=== PATIENT | female | born 1995 | race Caucasian/White ===

== ENCOUNTER 2016-12-19 17:50 | Emergency (ER) ==
[2016-12-19 17:57] VITALS: BP 114/85; TEMP 98.5; BMI 23.9
--- NOTE | 2016-12-19 18:51 | ED.PDOC ---
General Stated Complaint: abdominal pain Time Seen by Physician: 18:20 (home was postive ) Mode of Arrival: Walk-In Information Source: Patient Exam Limitations: No limitations Nursing and Triage Documentation Reviewed and Agree: Yes (seen with silas at all times , pt's last LMP WAS 11/11) <HEBERT PENNINGTON - Last Filed: 12/19/16 19:04> <LORENZA PORRAS - Last Filed: 12/19/16 19:22> ED Provider: Dr. LORENZA PORRAS Chief Complaint: Abdominal Pain Primary Care Provider: BLAYNE JAMISON GI Complaint Exam - Abdominal Pain Complaint/Exam Onset: Gradual Duration: 1 DAY Symptoms Are: Still present Timing: Intermittent Initial Severity: Mild Current Severity: None Location of Pain: RLQ, LLQ Character: Reports: Aching Aggravating: Reports: None Alleviating: Reports: None Associated Signs and Symptoms: Denies: Diaphoresis, Fever, Cough, Chest pain, Dizziness, Back pain, Constipation, Blood in stool, Dysuria, Urinary frequency, Decreased urine output, Decreased appetite, Vaginal bleeding, Vaginal discharge , Nausea, Vomiting, Diarrhea, Sore throat, Decreased activity AAA Risk Factors: Reports: None Cardiac Risk Factors: Reports: DM Ectopic Risk Factors: Reports: None Ovarian Torsion Risk Factors: Reports: Reproductive age Surgical Obstruction Risk Factors: Reports: None Related Surgical History: Reports: None Patient Rh Status: Unknown Differential Diagnoses: Appendicitis, Bowel Obstruction, Constipation, Diverticulitis, Gastroenteritis, Pancreatitis, Renal Colic, Ureteral Stone, UTI , , Ovarian Cyst <HEBERT PENNINGTON - Last Filed: 12/19/16 19:04> Review of Systems - Review Of Systems Constitutional: Reports: No symptoms Eyes: Reports: No symptoms Ears, Nose, Mouth, Throat: Reports: No symptoms Respiratory: Reports: No symptoms Cardiac: Reports: No symptoms GI: Reports: Abdominal pain (no vaginal bleeding or discharge no contractions) : Reports: No symptoms Musculoskeletal: Reports: No symptoms Skin: Reports: No symptoms Neurological: Reports: No symptoms Endocrine: Reports: No symptoms Hematologic/Lymphatic: Reports: No symptoms All Other Systems: Reviewed and Negative <HEBERT PENNINGTON - Last Filed: 12/19/16 19:04> Past Medical History - Past Medical History Previously Healthy: No Endocrine: Reports: DM 1 Cardiovascular: Reports: None Respiratory: Reports: None Hematological: Reports: None Gastrointestinal: Reports: None Genitourinary: Reports: None Neuro/Psych: Reports: None Musculoskeletal: Reports: None Cancer: Reports: None Last Menstrual Period: 11/11 Other Pertinent Past Medical History: - Surgical History General Surgical History: Reports: Appendectomy, Cholecystectomy, Tonsillectomy , Other (Liver biopsy. ) - Family History Family History: Reports: None - Social History Smoking Status: Never smoker Hx Substance Use: No Alcohol Screening: None - Immunizations Tetanus Shot up to Date: Yes <ADITIHEBERT - Last Filed: 12/19/16 19:04> Physical Exam - Physical Exam Appearance: Well-appearing, No pain distress, Well-nourished Eyes: JACKIE, EOMI, Conjunctiva clear ENT: Ears normal, Nose normal, Oropharynx normal Respiratory: Airway patent, Breath sounds clear, Breath sounds equal, Respirations nonlabored Cardiovascular: RRR, Pulses normal, No rub, No murmur GI/: Soft, Nontender, No masses, Bowel sounds normal, No Organomegaly Musculoskeletal: Normal strength, ROM intact, No edema, No calf tenderness Skin: Warm, Dry, Normal color Neurological: Sensation intact, Motor intact, Reflexes intact, Cranial nerves intact, Alert, Oriented Psychiatric: Affect appropriate, Mood appropriate <HEBERT PENNINGTON - Last Filed: 12/19/16 19:04> Physician Notification - Case Discussed Physician Notified: VERN Time of Notification: 19:00 <ADITIHEBERT - Last Filed: 12/19/16 19:04> Critical Care Note - Critical Care Note Total Time (mins): 0 <HEBERT PENNINGTON - Last Filed: 12/19/16 19:04> Departure - Departure Pt referred to PMD for follow-up: No <HEBERT PENNINGTON - Last Filed: 12/19/16 19:04> - Departure Time of Disposition: 19:22 Disposition Discussed With: Patient <LORENZA PORRAS - Last Filed: 12/19/16 19:22> - Departure Disposition: HOME SELF-CARE Discharge Problem: Abdominal pain Qualifiers: Weeks of gestation: less than 8 weeks Qualifier Code: (Z3A.01) Less than 8 weeks gestation of Instructions: Abdominal Pain (ED) Condition: Good Additional Instructions: please start pre carrie vitamins keep checking sugars more frequently, if more than 200 needs to talk to PMD or come back to ER. Allergies/Adverse Reactions: Allergies adhesive Adverse Reaction (Verified 12/19/16 18:04) aspirin Adverse Reaction (Verified 12/19/16 18:04) Home Medications: Ambulatory Orders Insulin Glargine,Hum.rec.anlog [Lantus] 45 unit SUBCUT BEDTIME 04/08/14 Insulin Lispro [Humalog Kwikpen U-100] 1 units SQ TID 11/17/15
[2016-12-19 19:10] LABS: BILIRUBIN,URINE Negative (NEGATIVE); KETONES,URINE 2+ (NEGATIVE); LEUKOCYTE ESTERASE ,URINE Negative (NEGATIVE); NITRITE,URINE Negative (NEGATIVE); PH,URINE 5.5 (5-9); PROTEIN,URINE Negative (NEGATIVE); URINE, BLOOD Negative (NEGATIVE)
[2016-12-19 19:11] LABS: ADD URINE MICROSCOPIC YES
[2016-12-19 19:17] LABS: SERUM PREGNANCY INTERNAL QC INTERNAL QC VALID
[2016-12-19 19:21] LABS: AMYLASE 30 U/L (25-115); LIPASE 12 U/L (8-78)
== END 2016-12-19 19:55 | disposition home or self-care (01) ==
LOC: ED 17:50
DX: R10.32 Left lower quadrant pain (principal); R10.31 Right lower quadrant pain; Z33.1 Pregnant state, incidental; Z3A.01 Less than 8 weeks gestation of pregnancy; E11.9 Type 2 diabetes mellitus without complications
CPT/HCPCS: 36415; 81001; 82150; 83690; 84703; 99283

== ENCOUNTER 2017-04-08 03:26 | Emergency (ER) ==
[2017-04-08 03:41] VITALS: TEMP 98; BMI 23.6
[2017-04-08] MEDS ORDERED: SODIUM CHLORIDE 1,000 ML IV STA (03:53)
[2017-04-08 04:05] LABS: BASOPHILS # (AUTO) 0.1 K/uL (0-0.2); BASOPHILS % (AUTO) 0.6 % (0.0-3.0); EOSINOPHILS # (AUTO) 0.3 K/ul (0.0-0.7); EOSINOPHILS % (AUTO) 2.8 % (0.0-7.0); HEMATOCRIT 34.6 % (37.0-47.0); HEMOGLOBIN 11.5 g/dl (12.0-16.0); IMMATURE GRANULOCYTE % (AUTO) 0.3 % (0.0-5.0); LYMPHOCYTES # (AUTO) 2.2 K/uL (0.60-3.4); LYMPHOCYTES % (AUTO) 22.5 (10.0-50.0); MEAN CORPUSCULAR HGB CONC 33.2 (31.8-35.4); MEAN CORPUSCULAR VOLUME 78.3 fl (81.0-99.0); MONOCYTES # (AUTO) 0.5 K/uL (0.4-2.0); MONOCYTES % (AUTO) 5.3 (0-10); NEUTROPHILS # (AUTO) 6.7 K/ul (2.0-6.9); NEUTROPHILS % (AUTO) 68.5; PLATELET COUNT 369 10^3/uL (140-440); RED BLOOD COUNT 4.42 10^6/ul (4.20-5.40); WHITE BLOOD COUNT 9.73 K/ul (4.6-10.2)
[2017-04-08 04:09] LABS: BILIRUBIN,URINE Negative (NEGATIVE); KETONES,URINE 1+ (NEGATIVE); LEUKOCYTE ESTERASE ,URINE Negative (NEGATIVE); NITRITE,URINE Negative (NEGATIVE); PH,URINE 6.5 (5-9); PROTEIN,URINE Negative (NEGATIVE); URINE, BLOOD Negative (NEGATIVE)
[2017-04-08 04:13] LABS: ADD URINE MICROSCOPIC NO
[2017-04-08 04:13] LABS: SERUM PREGNANCY INTERNAL QC INTERNAL QC VALID
[2017-04-08 04:22] LABS: ALBUMIN/GLOBULIN RATIO 0.77; ANION GAP 15.2; BILIRUBIN,TOTAL 0.47 mg/dL (0.00-1.20); BUN/CREATININE RATIO 12.38; CREATININE 1.05 mg/dL (0.60-1.30); POTASSIUM 4.2 mmol/L (3.5-5.10); TOTAL PROTEIN 6.9 g/dL (6.4-8.2)
--- NOTE | 2017-04-08 04:24 | ED.PDOC ---
General Stated Complaint: my bs are running high Time Seen by Physician: 03:30 Mode of Arrival: Walk-In Information Source: Patient, Family Exam Limitations: No limitations Nursing and Triage Documentation Reviewed and Agree: Yes <RAKESHMAHNAZ - Last Filed: 04/08/17 07:01> <HEBERT PENNINGTON - Last Filed: 04/08/17 08:23> ED Provider: Dr. HEBERT PENNINGTON Chief Complaint: Diabetes Primary Care Provider: BLAYNE JAMISON Endocrine Complaint Exam - Diabetic Complication Complaint/Exam Onset/Duration: this evening Symptoms Are: Still present Timing: Constant Initial Severity: Mild Current Severity: Moderate Character: Alert Aggravating: Reports: None Alleviating: Reports: None Associated Signs and Symptoms: Denies: Decreased LOC, Polydipsia, Polyuria, Polyphagia, Weight loss, Abdominal pain, Nausea, Vomiting, Fever, Diaphoresis, Fruity breath Related History: Reports: DM 1 Last Glucometer Reading: over 600 Cardiac Risk Factors: Reports: None CVA Risk Factors: Reports: DM Serious Bacterial Infection Risk Factors: Reports: None Related Surgical History: Reports: None Acetone on Breath: No Dry Mucous Membranes: Yes Kussmaul Respirations: No Glascow Coma Scale (see protocol): 15 Meningeal Signs: No Focal Weakness: None Focal Sensory Loss: None Gait: Normal Nystagmus Present: No Gag Reflex Present: Yes Finger to Nose: Normal Romberg Test Positive: No Babinski Sign: Negative Right, Negative Left Heel to Toe Normal: Yes Differential Diagnoses: Diabetic Ketoacidosis, Hyperosmolar State Quality Indicator For Non-Traumatic Chest Pain/Syncope: EKG Performed <RAKESHMAHNAZ Filed: 04/08/17 07:01> Review of Systems - Review Of Systems Constitutional: Reports: No symptoms Eyes: Reports: No symptoms Ears, Nose, Mouth, Throat: Reports: No symptoms Respiratory: Reports: No symptoms Cardiac: Reports: No symptoms GI: Reports: No symptoms : Reports: No symptoms Musculoskeletal: Reports: No symptoms Skin: Reports: No symptoms Neurological: Reports: No symptoms Endocrine: Reports: No symptoms Hematologic/Lymphatic: Reports: No symptoms All Other Systems: Reviewed and Negative <RAKESHMAHNAZ Last Filed: 04/08/17 07:01> Past Medical History - Past Medical History Previously Healthy: No Endocrine: Reports: DM 1 Cardiovascular: Reports: None Respiratory: Reports: None Hematological: Reports: None Gastrointestinal: Reports: None Genitourinary: Reports: None Neuro/Psych: Reports: None Musculoskeletal: Reports: None Cancer: Reports: None Last Menstrual Period: 03/13/17 Other Pertinent Past Medical History: - Surgical History General Surgical History: Reports: Appendectomy, Cholecystectomy, Tonsillectomy , Other (Liver biopsy. ) - Family History Family History: Reports: None - Social History Smoking Status: Never smoker Hx Substance Use: No Alcohol Screening: None Lives: With family - Immunizations Tetanus Shot up to Date: Yes <MAHNAZ CAMERON - Last Filed: 04/08/17 07:01> Physical Exam - Physical Exam Appearance: Well-appearing, No pain distress, Well-nourished Eyes: JACKIE ENT: Ears normal Neck: Supple Respiratory: Airway patent, Breath sounds clear, Breath sounds equal, Respirations nonlabored Cardiovascular: RRR GI/: Soft, Nontender, No masses, Bowel sounds normal, No Organomegaly Musculoskeletal: Normal strength Skin: Warm Neurological: Sensation intact, Motor intact, Reflexes intact, Cranial nerves intact, Alert, Oriented Psychiatric: Affect appropriate, Mood appropriate <MAHNAZ CAMERON - Last Filed: 04/08/17 07:01> Re-Evaluation - Re-Evaluation Time of Re-Evaluation: 07:00 (took over care discussed labs and high risk , with Selin RN at bedside pt is refusing admission and transfer ) Status: Improved Vital Signs Stable: Yes Pain Level: 0 Appearance: NAD Lungs: Clear Skin: Warm and Dry Neuro: Alert and Oriented X3 CV: RRR - Re-Evaluation Time of Re-Evaluation: 08:18 (seen pt with erlin PEREZ pt is still refusing admission and transfer risks is fully disclosed ) Status: Improved Vital Signs Stable: Yes Pain Level: 0 Appearance: NAD Skin: Warm and Dry Neuro: Other (serialy accuchecks were done through out presentation) <HEBERT PENNINGTON - Last Filed: 04/08/17 08:23> Physician Notification - Case Discussed Physician Notified: dr etienne--declines--no sustainable design consultant available([employer]) Time of Notification: 06:06 Physician Notified: we also called juliette joel and m[facility]al--all do not have endo and ob Endorsed To/Discussed With: dr pennington--7 am <MAHNAZ CAMERON - Last Filed: 04/08/17 07:01> Critical Care Note - Critical Care Note Total Time (mins): 45 <MAHNAZ CAMERON - Last Filed: 04/08/17 07:01> Course - Course Hematology/Chemistry: 04/08/17 04:00 04/08/17 04:00 <MAHNAZ CAMERON - Last Filed: 04/08/17 07:01> - Course Hematology/Chemistry: 04/08/17 04:00 04/08/17 06:40 <HEBERT PENNINGTON - Last Filed: 04/08/17 08:23> - Course Orders, Labs, Meds: Lab Review 04/08/17 04/08/17 04/08/17 03:52 03:55 04:00 WBC 9.73 RBC 4.42 Hgb 11.5 L Hct 34.6 L MCV 78.3 L MCH 26.0 L MCHC 33.2 RDW Coeff of [place] 15.4 H Plt Count 369 Immature Gran % (Auto) 0.3 Neut % (Auto) 68.5 Lymph % (Auto) 22.5 [place] % (Auto) 5.3 Eos % (Auto) 2.8 Baso % (Auto) 0.6 Immature Gran # (Auto) 0.0 Neut # 6.7 Lymph # 2.2 [place] # 0.5 Eos # 0.3 Baso # 0.1 Puncture Site Lrad O2 Saturation 98.0 ABG pH 7.381 ABG pCO2 35.1 ABG pO2 98.0 ABG HCO3 20.8 L ABG Total CO2 22 ABG Base Excess -4 L Reid Test + FiO2 % 21.0 Sodium Potassium Chloride Carbon Dioxide Anion Gap BUN Creatinine Estimated GFR (MDRD) BUN/Creatinine Ratio Glucose Hemoglobin A1c Calcium Total Bilirubin AST ALT Alkaline Phosphatase Total Protein Albumin Globulin Albumin/Globulin Ratio HCG, Quant Serum , Qual Urine Color Yellow Urine Clarity Clear Urine pH 6.5 Ur Specific [place] 1.010 Urine Protein Negative Urine Glucose (UA) 3+ H Urine Ketones 1+ Urine Blood Negative Urine Nitrite Negative Urine Bilirubin Negative Urine Urobilinogen 0.2 Ur Leukocyte Esterase Negative Acetone, Qual 04/08/17 04/08/17 04/08/17 04:00 04:00 04:00 WBC RBC Hgb Hct MCV MCH MCHC RDW Coeff of [place] Plt Count Immature Gran % (Auto) Neut % (Auto) Lymph % (Auto) [place] % (Auto) Eos % (Auto) Baso % (Auto) Immature Gran # (Auto) Neut # Lymph # [place] # Eos # Baso # Puncture Site O2 Saturation ABG pH ABG pCO2 ABG pO2 ABG HCO3 ABG Total CO2 ABG Base Excess Reid Test FiO2 % Sodium 123 L Potassium 4.2 Chloride 92 L Carbon Dioxide 20 L Anion Gap 15.2 BUN 13 Creatinine 1.05 Estimated GFR (MDRD) 66.00 BUN/Creatinine Ratio 12.38 Glucose 792 H* Hemoglobin A1c 12.0 H Calcium 9.0 Total Bilirubin 0.47 AST 16 ALT 13 Alkaline Phosphatase 108 H Total Protein 6.9 Albumin 3.0 L Globulin 3.9 Albumin/Globulin Ratio 0.77 HCG, Quant Serum , Qual Positive Urine Color Urine Clarity Urine pH Ur Specific [place] Urine Protein Urine Glucose (UA) Urine Ketones Urine Blood Urine Nitrite Urine Bilirubin Urine Urobilinogen Ur Leukocyte Esterase Acetone, Qual 04/08/17 04/08/17 04/08/17 04:00 05:02 06:40 WBC RBC Hgb Hct MCV MCH MCHC RDW Coeff of [place] Plt Count Immature Gran % (Auto) Neut % (Auto) Lymph % (Auto) [place] % (Auto) Eos % (Auto) Baso % (Auto) Immature Gran # (Auto) Neut # Lymph # [place] # Eos # Baso # Puncture Site O2 Saturation ABG pH ABG pCO2 ABG pO2 ABG HCO3 ABG Total CO2 ABG Base Excess Reid Test FiO2 % Sodium 132 L Potassium 3.3 L Chloride 100 Carbon Dioxide 18 L Anion Gap 17.3 BUN 12 Creatinine 0.82 Estimated GFR (MDRD) 87.00 BUN/Creatinine Ratio 14.63 Glucose 293 H D Hemoglobin A1c Calcium 9.0 Total Bilirubin AST ALT Alkaline Phosphatase Total Protein Albumin Globulin Albumin/Globulin Ratio HCG, Quant 94224.65 Serum , Qual Urine Color Urine Clarity Urine pH Ur Specific [place] Urine Protein Urine Glucose (UA) Urine Ketones Urine Blood Urine Nitrite Urine Bilirubin Urine Urobilinogen Ur Leukocyte Esterase Acetone, Qual Trace Orders Category Date Time Status ABG DRAW REQUEST Stat CARDIO 04/08/17 03:52 Completed EKG-(ED ONLY) Stat CARDIO 04/08/17 03:52 Completed BLOOD GLUCOSE MONITORING Q1HR CARE 04/08/17 04:40 Active Clean Room Assembler [ED HOME DEMONSTRATION AGENT APPLIED] .ONCE EMERGENCY 04/08/17 03:54 Active IV [ED IV/MEDIPORT/POWERPORT] .ONCE EMERGENCY 04/08/17 03:53 Active ABG Stat LAB 04/08/17 03:52 Completed ACETONE, QUALITATIVE Stat LAB 04/08/17 05:02 Completed BMP [BASIC METABOLIC PANEL] Stat LAB 04/08/17 06:40 Completed CBC W/ AUTO DIFF Stat LAB 04/08/17 04:00 Completed COMPREHENSIVE METABOLIC PANEL Stat LAB 04/08/17 04:00 Completed HCG,QUANTITATIVE Stat LAB 04/08/17 04:00 Completed HEMOGLOBIN A1C Stat LAB 04/08/17 04:00 Completed SERUM Stat LAB 04/08/17 04:00 Completed URINALYSIS C & S IF INDICATED Stat LAB 04/08/17 03:55 Completed 0.9 % Sodium Chloride [Saline Flush] MEDS 04/08/17 03:53 Active 1 syr IVF PRN PRN 0.9 % Sodium Chloride [Sodium Chloride] 100 ml MEDS 04/08/17 05:56 Active Insulin Regular, Human [Humulin R] 100 unit IV 3 unit/hr 0.9 % Sodium Chloride [Sodium Chloride] 100 ml MEDS 04/08/17 04:45 Discontinued Insulin Regular, Human [Humulin R] 100 unit IV 5 unit/hr Insulin Regular, Human [Humulin R] MEDS 04/08/17 04:55 Discontinued 100 unit .ROUTE .STK-MED ONE Sodium Chloride 0.9% [Sodium Chloride] 1,000 ml MEDS 04/08/17 03:53 Active IV 100 mls/hr ULTRASOUND OB/TV [U/S OB/TV] Stat RADS 04/08/17 07:13 Completed Medications Generic Name Dose Route Start Last Admin Trade Name Freq PRN Reason Stop Dose Admin Sodium Chloride 1,000 mls @ 100 mls/hr 04/08/17 03:53 04/08/17 04:06 Sodium Chloride IV 04/08/17 13:52 100 mls/hr .Q10H STA Administration Insulin Human Regular 100 unit 100 mls @ 3 mls/hr 04/08/17 05:56 04/08/17 07: 53 / Sodium Chloride IV 0 unit/hr .Q24H CLIFF 0 mls/hr Protocol Titration 3 UNIT/HR Sodium Chloride 1 syr 04/08/17 03:53 04/08/17 04:06 Saline Flush IVF 1 syr PRN PRN Administration To flush IV Discontinued Medications Generic Name Dose Route Start Last Admin Trade Name Alejandro PRN Reason Stop Dose Admin Insulin Human Regular 100 unit 100 mls @ 5 mls/hr 04/08/17 04:45 04/08/17 04: 52 / Sodium Chloride IV 5 unit/hr .Q20H CLIFF 5 mls/hr Protocol Administration 5 UNIT/HR i felt it was in her best interest to be transferred to a facility that has both ob and endocrinology--we checked with [facility] grant, and [facility] but these facilities do not have both endo and ob--i offered to call other facilities including [facility] but she refused, I informed her by refusing transfer she and the fetus were at risk for damage and even but she still refuses transfer at this time.) (MAHNAZ CAMERON) Vital Signs: Temp Pulse Resp BP Pulse Ox 04/08/17 06:00 98 H 20 113/79 04/08/17 04:52 89 20 109/76 04/08/17 03:27 98 F 97 H 18 115/75 98 Departure <MAHNAZ CAMERON - Last Filed: 04/08/17 07:01> - Departure Time of Disposition: 08:20 (again we discussed the risks of uncontrolled diabetes and and maternal mobidity and mortality, pt is refusing transfer and admission. ) Pt referred to PMD for follow-up: Yes Disposition Discussed With: Patient, Family <HEBERT PENNINGTON - Last Filed: 04/08/17 08:23> - Departure Disposition: AMA Discharge Problem: Hyperglycemia, Hyponatremia, Positive test Instructions: (ED), Type 1 Diabetes in Adults (ED) Condition: Good Additional Instructions: Please call your Family Physician as soon as possible to schedule a follow-up appointment. Allergies/Adverse Reactions: Allergies adhesive Adverse Reaction (Verified 04/08/17 03:39) Rash aspirin Adverse Reaction (Verified 04/08/17 03:39) ABD PAIN Home Medications: Ambulatory Orders Insulin Glargine,Hum.rec.anlog [Lantus] 45 unit SUBCUT BEDTIME 04/08/14 Insulin Lispro [Humalog Kwikpen U-100] 1 units SQ TID 11/17/15
[2017-04-08 04:25] LABS: ABG BASE EXCESS -4 (-2.0-2.0); ABG HCO3 20.8 (22.0-26.0); ABG PCO2 35.1 mmHg (35-45); ABG PH 7.381 (7.35-7.45); ABG TCO2 22 (22.0-28.0)
[2017-04-08] MEDS ORDERED: HUMULIN R 100 UNIT in SODIUM CHLORIDE 100 ML IV SCH ×2 (04:45→05:56)
[2017-04-08] MEDS ORDERED: HUMULIN R ONE (04:55)
[2017-04-08 06:01] VITALS: BP 113/79
[2017-04-08 07:03] LABS: ANION GAP 17.3; BUN/CREATININE RATIO 14.63; CREATININE 0.82 mg/dL (0.60-1.30); POTASSIUM 3.3 mmol/L (3.5-5.10)
--- NOTE | 2017-04-08 08:06 | US ---
EXAM: Ultrasound obstetrical transvaginal. HISTORY: Threatened this care inch. COMPARISON: None available. TECHNIQUE: [place]-scale and color Doppler images. FINDINGS: Uterus measures 9 x 6 x 7 cm. Intrauterine gestation noted with estimated gestational age of 5 weeks 6 days based on mean crown-rump length of 0.28 cm. Yolk sac is present. Amniotic fluid volume appe ars normal. heart rate recorded at 102 beats per minute. No subchorionic hemorrhage identifie d. Right ovary measures 4 x 1.5 x 2.7 cm. The left ovary is not seen. No adnexal masses or pelvic flui d collections identified. IMPRESSION: Single live intrauterine gestation with estimated gestational age of 5 weeks 6 days, with estimated d ate of delivery 12/03/2017.
== END 2017-04-08 08:30 | disposition left against medical advice (07) ==
LOC: ED 03:26
DX: R73.9 Hyperglycemia, unspecified (principal); E10.9 Type 1 diabetes mellitus without complications; E87.1 Hypo-osmolality and hyponatremia; Z33.1 Pregnant state, incidental; Z79.4 Long term (current) use of insulin
CPT/HCPCS: 36415; 80048; 80053; 81001; 82009; 82803; 82962; 83036; 84702; 84703; 85025; 93005; 93010; 96365; 96366; 99284

== ENCOUNTER 2017-07-30 18:35 | Inpatient (IN) ==
[2017-07-30 18:50] VITALS: BMI 23.0
[2017-07-30] MEDS ORDERED: SODIUM CHLORIDE 1,000 ML IV STA (18:51)
[2017-07-30] MEDS ORDERED: DEMEROL 25 MG/ML VIAL IVP STA (19:28)
[2017-07-30] MEDS ORDERED: ZOFRAN 4 MG/2 ML IVP STA (19:28)
--- NOTE | 2017-07-30 20:24 | ED.PDOC ---
General ED Provider: Dr. LORENZA PORRAS Chief Complaint: Diabetes Stated Complaint: Patient came for the elavated Blood sugars. she has toothache , eversince she is not eating much, BS been elevated, Time Seen by Physician: 20:22 Mode of Arrival: Ambulance Information Source: Patient Nursing and Triage Documentation Reviewed and Agree: Yes Reviewed sepsis parameters & appropriate labs ordered?: No System Inflammatory Response Syndrome: Not Applicable Sepsis Protocol: For patient's 13 years and over: Temp is 96.8 and below OR 101 and greater Pulse >90 BPM Resp >20/minute Acutely Altered Mental Status Are patient's symptoms suggestive of a new infection, such as: -Pneumonia -Skin, Soft Tissue -Endocarditis -UTI -Bone, Joint Infection -Implantable Device -Acute Abdominal Infection -Wound Infection -Meningitis -Blood Stream Catheter Infection -Unknown Endocrine Complaint Exam - Diabetic Complication Complaint/Exam Symptoms Are: Still present Timing: Constant Initial Severity: Severe Current Severity: Severe Character: Alert Aggravating: Reports: Recent illness (dental pain) Alleviating: Reports: None Associated Signs and Symptoms: Reports: Polydipsia, Polyuria, Fever, Fruity breath. Denies: Decreased LOC, Polyphagia, Weight loss, Abdominal pain, Nausea , Vomiting, Diaphoresis Related History: Reports: Similar episode Cardiac Risk Factors: Reports: None CVA Risk Factors: Reports: None Serious Bacterial Infection Risk Factors: Reports: None Related Surgical History: Reports: None Acetone on Breath: Yes Dry Mucous Membranes: Yes Kussmaul Respirations: No Meningeal Signs: No Focal Weakness: None Focal Sensory Loss: None Gait: Normal Nystagmus Present: No Gag Reflex Present: Yes Finger to Nose: Normal Romberg Test Positive: No Babinski Sign: Negative Right, Negative Left Heel to Toe Normal: No Differential Diagnoses: Diabetic Ketoacidosis Review of Systems - Review Of Systems Constitutional: Reports: Fever, Malaise, Weakness Eyes: Reports: No symptoms Ears, Nose, Mouth, Throat: Reports: No symptoms Respiratory: Reports: No symptoms Cardiac: Reports: No symptoms GI: Reports: No symptoms : Reports: No symptoms Musculoskeletal: Reports: No symptoms Skin: Reports: No symptoms Neurological: Reports: No symptoms Endocrine: Reports: Increased thirst, Increased urine Hematologic/Lymphatic: Reports: No symptoms All Other Systems: Reviewed and Negative Past Medical History - Past Medical History Previously Healthy: No Endocrine: Reports: DM 1 Cardiovascular: Reports: None Respiratory: Reports: None Hematological: Reports: None Gastrointestinal: Reports: None Genitourinary: Reports: None Neuro/Psych: Reports: None Musculoskeletal: Reports: None Cancer: Reports: None Last Menstrual Period: 2 weeks ago Other Pertinent Past Medical History: - Surgical History General Surgical History: Reports: Appendectomy, Cholecystectomy, Tonsillectomy , Other (Liver biopsy. ) - Family History Family History: Reports: None - Social History Smoking Status: Never smoker Hx Substance Use: No Alcohol Screening: None Physical Exam - Physical Exam Appearance: Ill-appearing, Thin Ill-appearing: Moderate Eyes: EOMI, Conjunctiva clear ENT: Ears normal, Nose normal, Oropharynx normal Respiratory: Airway patent, Breath sounds clear, Breath sounds equal, Respirations nonlabored Cardiovascular: RRR, Pulses normal, No rub, No murmur GI/: Soft, Nontender, No masses, Bowel sounds normal, No Organomegaly Musculoskeletal: Normal strength, ROM intact, No edema, No calf tenderness Skin: Warm, Dry, Normal color Neurological: Sensation intact, Motor intact, Reflexes intact, Cranial nerves intact, Alert, Oriented Psychiatric: Affect appropriate, Mood appropriate Critical Care Note - Critical Care Note Total Time (mins): 20 Course - Course Hematology/Chemistry: 07/30/17 19:01 07/30/17 19:01 Orders, Labs, Meds: Lab Review 07/30/17 07/30/17 07/30/17 17:15 19:01 19:01 WBC 8.36 RBC 4.51 Hgb 12.1 Hct 38.9 MCV 86.3 MCH 26.8 L MCHC 31.1 L RDW Coeff of Tyrone 15.1 H Plt Count 365 Immature Gran % (Auto) 0.5 Neut % (Auto) 76.4 Lymph % (Auto) 18.8 [place] % (Auto) 2.3 Eos % (Auto) 1.4 Baso % (Auto) 0.6 Immature Gran # (Auto) 0.0 Neut # 6.4 Lymph # 1.6 [place] # 0.2 L Eos # 0.1 Baso # 0.1 Puncture Site R brach O2 Saturation 99.0 ABG pH 7.233 L* ABG pCO2 18.8 L ABG pO2 135.0 H ABG HCO3 7.9 L ABG Total CO2 8 L ABG Base Excess -20 L Reid Test + FiO2 % 21.0 Sodium 130 L Potassium 5.3 H Chloride 94 L Carbon Dioxide 11 L Anion Gap 30.3 BUN 17 Creatinine 1.47 H Estimated GFR (MDRD) 44.00 BUN/Creatinine Ratio 11.56 Glucose 981 H* Calcium 8.8 Total Bilirubin 0.4 AST 22 ALT 24 Alkaline Phosphatase 146 H Total Protein 6.9 Albumin 2.9 L Globulin 4.0 Albumin/Globulin Ratio 0.73 Amylase 32 Lipase 11 Orders Category Date Time Status ABG DRAW REQUEST Stat CARDIO 07/30/17 18:52 Completed BLOOD GLUCOSE MONITORING Q1HR CARE 07/30/17 20:28 Active ED IV/MEDIPORT/POWERPORT .ONCE EMERGENCY 07/30/17 18:51 Active ABG Stat LAB 07/30/17 17:15 Completed AMYLASE Stat LAB 07/30/17 19:01 Completed CBC W/ AUTO DIFF Stat LAB 07/30/17 19:01 Completed COMPREHENSIVE METABOLIC PANEL Stat LAB 07/30/17 19:01 Completed LIPASE Stat LAB 07/30/17 19:01 Completed 0.9 % Sodium Chloride [Saline Flush] MEDS 07/30/17 18:52 Active 1 syr IVF PRN PRN 0.9 % Sodium Chloride [Sodium Chloride] 100 ml MEDS 07/30/17 20:30 Ordered Insulin Regular, Human [Humulin R] 100 unit IV 5 unit/hr Insulin Regular, Human [Humulin R] MEDS 07/30/17 20:33 Discontinued 1 unit .ROUTE .STK-MED ONE Meperidine HCl/Pf [Demerol 25 mg/ml Vial] MEDS 07/30/17 19:28 Discontinued 25 mg IVP ONCE STA Ondansetron HCl/Pf [Zofran 4 mg/2 ml] MEDS 07/30/17 19:28 Discontinued 4 mg IVP ONCE STA Sodium Bicarbonate [Sodium Bicarbonate 8.4%] MEDS 07/30/17 20:27 Discontinued 50 meq IVP ONCE STA Sodium Chloride 0.9% [Sodium Chloride] 1,000 ml MEDS 07/30/17 18:51 Discontinued IV BOLUS Medications Generic Name Dose Route Start Last Admin Trade Name Freq PRN Reason Stop Dose Admin Insulin Human Regular 100 unit 100 mls @ 5 mls/hr 07/30/17 20:30 07/30/17 21: 59 / Sodium Chloride IV 5 unit/hr .Q20H CLIFF 5 mls/hr Protocol Titration 5 UNIT/HR Sodium Chloride 1 syr 07/30/17 18:52 07/30/17 19:15 Saline Flush IVF 1 syr PRN PRN Administration To flush IV Discontinued Medications Generic Name Dose Route Start Last Admin Trade Name Alejandro PRN Reason Stop Dose Admin Sodium Chloride 1,000 mls @ 1,000 mls/hr 07/30/17 18:51 07/30/17 19:15 Sodium Chloride IV 07/30/17 19:50 1,000 mls/hr BOLUS STA Administration Meperidine HCl 25 mg 07/30/17 19:28 07/30/17 19:36 Demerol 25 Mg/Ml Vial IVP 07/30/17 19:29 25 mg ONCE STA Administration Ondansetron HCl 4 mg 07/30/17 19:28 07/30/17 19:36 Zofran 4 Mg/2 Ml IVP 07/30/17 19:29 4 mg ONCE STA Administration Sodium Bicarbonate 50 meq 07/30/17 20:27 07/30/17 20:58 Sodium Bicarbonate 8.4% IVP 07/30/17 20:28 50 meq ONCE STA Administration Vital Signs: Temp Pulse Resp BP Pulse Ox 07/30/17 22:17 98 F 87 15 120/72 99 07/30/17 18:36 97.7 F 107 H 16 124/76 100 Departure - Departure Time of Disposition: 20:27 Disposition: ADMITTED INPATIENT Discharge Problem: Diabetic acidosis Qualifiers: Diabetes mellitus type: type 1 Diabetes mellitus complication detail: without coma Qualified Code(s): E10.10 - Type 1 diabetes mellitus with ketoacidosis without coma Instructions: Diabetic Ketoacidosis (GEN) Condition: Stable Pt referred to PMD for follow-up: No Allergies/Adverse Reactions: Allergies adhesive Adverse Reaction (Verified 07/30/17 18:41) Rash aspirin Adverse Reaction (Verified 07/30/17 18:41) ABD PAIN Home Medications: Ambulatory Orders Insulin Glargine,Hum.rec.anlog [Lantus] 45 unit SUBCUT BEDTIME 04/08/14 Insulin Lispro [Humalog Kwikpen U-100] 1 units SQ TID 11/17/15 Clindamycin HCl 150 mg PO Q4H 07/30/17 Disposition Discussed With: Patient
[2017-07-30] MEDS ORDERED: SODIUM BICARBONATE 8.4% IVP STA (20:27)
[2017-07-30] MEDS ORDERED: HUMULIN R 100 UNIT in SODIUM CHLORIDE 100 ML IV SCH (20:30)
[2017-07-30] MEDS ORDERED: HUMULIN R ONE (20:33)
[2017-07-30] MEDS ORDERED: ZOFRAN 4 MG/2 ML IVP PRN (22:26)
[2017-07-30] MEDS ORDERED: LOVENOX SUBCUT SCH (22:30)
[2017-07-30] MEDS ORDERED: SODIUM CHLORIDE 1,000 ML IV SCH (22:30)
[2017-07-30] MEDS ORDERED: ROCEPHIN 1 GM in SODIUM CHLORIDE 50 ML IV SCH (22:30)
[2017-07-31] MEDS ORDERED: ROCEPHIN ONE (00:41)
[2017-07-31] MEDS: NORCO 5-325 PO SCH ×5 (01:04→23:02)
[2017-07-31] MEDS ORDERED: SODIUM CHLORIDE 50 ML IV ONE (01:04)
[2017-07-31] MEDS: DEXTROSE 5%-NS IV SOLUTION 1,000 ML IV SCH ×2 (02:07→15:57)
[2017-07-31] MEDS ORDERED: HUMALOG SUBCUT SCH (08:00)
[2017-07-31] MEDS ORDERED: INSULIN LISPRO 1 UNIT SQ SCH (09:00)
[2017-07-31] MEDS: HUMULIN R SUBCUT PRN ×8 (10:23→23:04)
[2017-07-31] MEDS ORDERED: HUMULIN R 100 UNIT in SODIUM CHLORIDE 100 ML IV SCH (16:30)
[2017-07-31] MEDS ORDERED: LOVENOX SUBCUT SCH (21:00)
[2017-07-31] MEDS ORDERED: LANTUS SUBCUT SCH (21:00)
[2017-07-31] MEDS ORDERED: ROCEPHIN 1 GM in SODIUM CHLORIDE 50 ML IV SCH (21:00)
[2017-08-01] MEDS: HUMULIN R SUBCUT PRN ×4 (00:22→12:09)
[2017-08-01] MEDS: DEXTROSE 5%-NS IV SOLUTION 1,000 ML IV SCH (05:05)
[2017-08-01] MEDS: NORCO 5-325 PO SCH ×2 (05:05→12:09)
--- NOTE | 2017-08-01 14:15 | PN ---
DATE OF SERVICE: 07/31/17 SUBJECTIVE: The patient was admitted with diabetic ketoacidosis. The patient is off the drip. Sugars are 102. Dental pain is still present. Facial swelling is better. REVIEW OF SYSTEMS: CONSTITUTIONAL: No fever, no chills. HEENT: Normal. ENDOCRINE: No weight gain, no weight loss. CVS: No angina symptoms. No CHF symptoms. No palpitations. No atypical chest pain for CAD. No shortness of breath. No PND, no orthopnea. RESPIRATORY: No cough, no hemoptysis. GI: No nausea, no vomiting. No abdominal pain. : No hematuria. No polyuria. MUSCULOSKELETAL: No joint swelling. PSYCHIATRIC: Not anxious. No depression. No suicidal thoughts. No homicidal thoughts. SKIN: Intact. No rash. PHYSICAL EXAMINATION: V/S: Blood pressure 107/65, respiratory rate 16, heart rate 109, temperature 99 , saturation 99. HEENT: Normocephalic, atraumatic. Mucosa dry. Left facial swelling is present. NECK: Supple. No JVD, no carotid bruit. No lymphadenopathy. LUNGS: Clear to auscultation. No rales or rhonchi. HEART: S1, S2 normal. No S3. No murmur, gallop or regurgitation. ABDOMEN: Soft, nontender. Bowel sounds active. No rigidity. No rebound or guarding. No CVA tenderness. EXTREMITIES: No clubbing, cyanosis or pedal edema. MUSCULOSKELETAL: No joint swelling. NEUROLOGIC: Awake, alert, oriented times three. No focal deficit. LYMPHATIC: No lymph nodes palpable. SKIN: Intact. LABS: Sodium 134, potassium 3.5, chloride 105, bicarb 21, BUN 16, creatinine 0.99, glucose 106, WBC 11.39, hgb 11.6, hct 34.7,. plt count 357. ASSESSMENT: 1. Diabetic ketoacidosis which is getting resolved 2. Dental abscess 3. Noncompliance 4. Cholecystectomy PLAN: 1. Resume home diabetic medications 2. Rocephin 1 gram daily 3. Hydrocodone for the pain 4. Diabetic diet. TIME SPENT: More than 35 minutes MTDD
[2017-08-01 19:23] VITALS: BP 115/74; TEMP 97.8
--- NOTE | 2017-09-23 14:22 | AMA ---
HISTORY: By evening the patient decided that as patient is feeling better she wanted to leave against medical advice. She thinks that she is better enough that she has leave. Nurses and myself both discussed that the dental abscess and DKA condition can get worse and the patient did not reason she just left AMA signing the papers. KATHY
--- NOTE | 2017-09-23 14:28 | PN ---
DATE OF SERVICE: 08/01/17 SUBJECTIVE: The patient was admitted with the diabetic ketoacidosis and dental abscess. The patient is feeling better. Dental pain is also improved, started eating. Sugars are getting better now. WBC was elevated. Blood sugars have improved with IV insulin and insulin drip been discussed today morning. REVIEW OF SYSTEMS: CONSTITUTIONAL: No fever, no chills. HEENT: Normal. ENDOCRINE: No weight gain, no weight loss. CVS: No angina symptoms. No CHF symptoms. No palpitations. No atypical chest pain for CAD. No shortness of breath. No PND, no orthopnea. RESPIRATORY: No cough, no hemoptysis. GI: No nausea, no vomiting. No abdominal pain. : No hematuria. No polyuria. MUSCULOSKELETAL: No joint swelling. PSYCHIATRIC: Not anxious. No depression. No suicidal thoughts. No homicidal thoughts. SKIN: Intact. No rash. PHYSICAL EXAMINATION: V/S: Blood pressure 94/62, respiratory rate 18, heart rate 85, temperature 97.6 and saturation is 99%. HEENT: Normocephalic, atraumatic. Mucosa dry. NECK: Supple. No JVD, no carotid bruit. No lymphadenopathy. LUNGS: Clear to auscultation. No rales or rhonchi. HEART: S1, S2 normal. No S3. No murmur, gallop or regurgitation. ABDOMEN: Soft, nontender. Bowel sounds active. No rigidity. No rebound or guarding. No CVA tenderness. EXTREMITIES: No pedal edema. No clubbing or cyanosis MUSCULOSKELETAL: No joint swelling. NEUROLOGIC: Awake, alert, oriented times three. No focal deficit. LYMPHATIC: No lymph nodes palpable. SKIN: Intact. LABS: WBC 5.70, hgb 11.3, hct 34.7, plt count 239, sodium 136, potassium 3.5, chloride 108, bicarb 21, BUN 15, creatinine 0.72 and glucose 98%. ASSESSMENT: 1. Diabetic Ketoacidosis 2. Dental abscess, left upper 3. Type 1 diabetes 4. Never smoker 5. Appendectomy 6. Cholecystectomy 7. Tonsillectomy 8. Liver Biopsy PLAN: 1. Continue the Rocephin 1 gram daily 2. Continue home insulin 3. Diabetic management 4. Cardiac monitoring Will follow the patient in daily rounds. TIME SPENT: More than 35 minutes MTDD
== END 2017-08-01 19:37 | disposition left against medical advice (07) | DRG 639 ==
LOC: ED 18:35 → SCU 23:59
PROVIDERS: ADMIT Emergency Medicine; ATTEND Emergency Medicine
DX: E10.10 Type 1 diabetes mellitus with ketoacidosis without coma (principal); K04.7 Periapical abscess without sinus; Z91.19 Patient's noncompliance with other medical treatment and regimen; K08.89 Other specified disorders of teeth and supporting structures
CPT/HCPCS: 36415; 80053; 82150; 82803; 82962; 83690; 85025; 87081; 96361; 96365; 96366; 96375; 99285

== ENCOUNTER 2017-11-22 01:55 | Emergency (ER) ==
[2017-11-22 02:09] VITALS: BP 117/86; TEMP 98.3; BMI 24.5
--- NOTE | 2017-11-22 02:22 | ED.PDOC ---
General ED Provider: Dr. MARIYA TITUS Chief Complaint: Tooth Problem Stated Complaint: Patient states that he broke his right lower molar tooth 4 days ago, now has swelling. He has an Apt in 4 days at the Dentist. Time Seen by Physician: 02:19 Mode of Arrival: Walk-In Information Source: Patient Exam Limitations: No limitations Primary Care Provider: RONALDO SIERRA Nursing and Triage Documentation Reviewed and Agree: Yes Reviewed sepsis parameters & appropriate labs ordered?: No System Inflammatory Response Syndrome: Not Applicable Sepsis Protocol: For patient's 13 years and over: Temp is 96.8 and below OR 101 and greater Pulse >90 BPM Resp >20/minute Acutely Altered Mental Status Are patient's symptoms suggestive of a new infection, such as: -Pneumonia -Skin, Soft Tissue -Endocarditis -UTI -Bone, Joint Infection -Implantable Device -Acute Abdominal Infection -Wound Infection -Meningitis -Blood Stream Catheter Infection -Unknown System Inflammatory Response Syndrome: Not Applicable EENT Complaint Exam - Dental/Oral Complaint/Exam Mechanism of Injury: No known trauma Onset/Duration: 10 days Symptoms Are: Still present Timing: Constant Initial Severity: Moderate Current Severity: Severe Location: Right lower molar Character: Reports: Dull, Aching, Throbbing Aggravating: Reports: Heat, Cold, Chewing Alleviating: Reports: None Associated Signs and Symptoms: Reports: Foul odor, Foul taste in mouth Cardiac Risk Factors: Reports: None Dental/Oral Surgical History: Reports: None Tooth Findings: Present: Gross decay, Gross caries, Abcess Cervical Lymphadenopathy Present: No Facial Swelling Present: Yes (mild right lower face) Bleeding Present: No Septal Hematoma: No Foreign Body Present: No Dysphagia Present: No Drooling Present: No Asymmetrical Tonsillar Swelling Present: No Uvula Midline: No Jenny-tonsillar Fluctuence: No Trismus Present: No Palatal Petechiae Present: No Scarlatinaform Rash Present: No Lesions: Absent: Lip, Gums, Tongue, Buccal Mucosa, Pharynx Exanthem: Absent: Lip, Gums, Tongue, Buccal Mucosa, Pharynx Vesicles: Absent: Lip, Gums, Tongue, Buccal Mucosa, Pharynx Teeth Picture: 1 - Gross decay to the root Differential Diagnoses: Dental Abcess, Dental Caries, Fractured Tooth Review of Systems - Review Of Systems Constitutional: Reports: No symptoms Eyes: Reports: No symptoms Ears, Nose, Mouth, Throat: Reports: No symptoms, Mouth pain Respiratory: Reports: No symptoms Cardiac: Reports: Irregular heart rate GI: Reports: No symptoms : Reports: No symptoms Musculoskeletal: Reports: No symptoms Skin: Reports: No symptoms Neurological: Reports: Anxiety Endocrine: Reports: No symptoms Hematologic/Lymphatic: Reports: No symptoms All Other Systems: Reviewed and Negative Past Medical History - Past Medical History Previously Healthy: No Endocrine: Reports: DM 1 Cardiovascular: Reports: None Respiratory: Reports: None Hematological: Reports: None Gastrointestinal: Reports: GERD Genitourinary: Reports: None Neuro/Psych: Reports: Seizure Musculoskeletal: Reports: None Cancer: Reports: None Last Menstrual Period: 1 WEEK AGO Other Pertinent Past Medical History: - Surgical History General Surgical History: Reports: Appendectomy, Cholecystectomy, Tonsillectomy , Other (Liver biopsy. ) - Family History Family History: Reports: None - Social History Smoking Status: Never smoker Hx Substance Use: No Alcohol Screening: None - Immunizations Tetanus Shot up to Date: Yes Physical Exam - Physical Exam Appearance: Ill-appearing, Well-nourished Ill-appearing: Mild Pain Distress: Severe Eyes: JACKIE, EOMI, Conjunctiva clear ENT: Ears normal, Nose normal, Oropharynx normal Neck: Supple Respiratory: Airway patent, Breath sounds clear, Breath sounds equal, Respirations nonlabored Cardiovascular: Pulses normal, No rub, No murmur, Tachycardia GI/: Soft, Nontender, No masses, Bowel sounds normal, No Organomegaly Musculoskeletal: Normal strength, ROM intact, No edema, No calf tenderness Skin: Warm, Dry, Normal color Neurological: Sensation intact, Motor intact, Reflexes intact, Cranial nerves intact, Alert, Oriented Psychiatric: Anxious, Depressed Critical Care Note - Critical Care Note Total Time (mins): 0 Course - Course Vital Signs: Temp Pulse Resp BP Pulse Ox 11/22/17 01:56 98.3 F 110 H 18 117/86 99 Departure - Departure Time of Disposition: 02:26 Disposition: HOME SELF-CARE Discharge Problem: Toothache, Dental abscess Instructions: Dental Abscess (ED) Condition: Stable Pt referred to PMD for follow-up: Yes IPMP verified?: No Additional Instructions: Take Medications as prescribed. Follow up with dentist in 4 days. Prescriptions: Amoxicillin [Amoxil] 500 mg PO TID #30 capsule Ibuprofen [Motrin] 600 mg PO Q6H PRN #30 tablet PRN Reason: Analgesia Tramadol HCl [Ultram] 50 mg PO Q6H PRN #7 tablet PRN Reason: Severe Pain Allergies/Adverse Reactions: Allergies adhesive Adverse Reaction (Verified 11/22/17 02:06) Rash aspirin Adverse Reaction (Verified 11/22/17 02:06) ABD PAIN Home Medications: Ambulatory Orders Insulin Glargine,Hum.rec.anlog [Lantus] 45 unit SUBCUT BEDTIME 04/08/14 Insulin Lispro [Humalog Kwikpen U-100] 1 units SQ TID PRN 11/17/15 Amoxicillin [Amoxil] 500 mg PO TID #30 capsule 11/22/17 Ibuprofen [Motrin] 600 mg PO Q6H PRN #30 tablet 11/22/17 Tramadol HCl [Ultram] 50 mg PO Q6H PRN #7 tablet 11/22/17 Disposition Discussed With: Patient
[2017-11-22] MEDS ORDERED: ULTRAM PO STA (02:40)
[2017-11-22] MEDS ORDERED: CLEOCIN PO STA (02:40)
== END 2017-11-22 02:59 | disposition home or self-care (01) ==
LOC: ED 01:55
DX: K04.7 Periapical abscess without sinus (principal); S02.5XXA Fracture of tooth (traumatic), initial encounter for closed fracture
CPT/HCPCS: 99282

== ENCOUNTER 2018-03-27 15:57 | Outpatient (CLI) ==
[2013-01-24 08:54] VITALS: TEMP 98
[2018-03-27 12:54] VITALS: BMI 25.0
== END 2018-03-27 15:58 | disposition home or self-care (01) ==
LOC: AMBL 15:57
PROVIDERS: ATTEND Internal Medicine
DX: E11.10 Type 2 diabetes mellitus with ketoacidosis without coma (principal)

== ENCOUNTER 2018-04-30 03:03 | Emergency (ER) ==
[2018-04-30 03:20] VITALS: BP 133/90; TEMP 97.9; BMI 25.2
[2018-04-30] MEDS ORDERED: IMITREX SUBCUT STA (03:38)
[2018-04-30] MEDS ORDERED: PHENERGAN 25 MG/ML VIAL IM STA (03:38)
--- NOTE | 2018-04-30 03:49 | ED.PDOC ---
General ED Provider: Dr. MARIYA TITUS Chief Complaint: Headache Stated Complaint: headache started yesterday but she has had headache all week while hospitalized for DKA with blood glucose of > 1000. She states that she was given Demerol who woked but returned twice. She was tried on [place] which did not help. She is going to see a neurologist soon for her headaches. Time Seen by Physician: 03:39 Mode of Arrival: Walk-In Information Source: Patient Primary Care Provider: MITA JAEGER Nursing and Triage Documentation Reviewed and Agree: Yes Does patient meet sepsis criteria?: No System Inflammatory Response Syndrome: Not Applicable Sepsis Protocol: For patient's 13 years and over: Temp is 96.8 and below OR 101 and greater Pulse >90 BPM Resp >20/minute Acutely Altered Mental Status Are patient's symptoms suggestive of a new infection, such as: -Pneumonia -Skin, Soft Tissue -Endocarditis -UTI -Bone, Joint Infection -Implantable Device -Acute Abdominal Infection -Wound Infection -Meningitis -Blood Stream Catheter Infection -Unknown Neurological Complaint Exam - Headache Complaint/Exam Onset: Gradual Duration: 1 week Symptoms Are: Still present Timing: Intermittent Worst Headache Ever: No Initial Severity: Moderate Current Severity: Severe Location: Diffuse Character: Reports: Throbbing, Typical headache, Migraine Aggravating: Reports: Bright lights Alleviating: Reports: None Associated Signs and Symptoms: Reports: Nausea Related History: Reports: Similar episode Related Surgical History: Reports: None SAH Risk Factors: Denies: -[place], Family history Meningitis Risk Factors: Reports: None SDH Risk Factors: Reports: None Temporal Arteritis Risk Factors: Reports: None Normal Head CT Within Last 12 Months: Yes Temporal Artery Tenderness: Present: None Sinus Tenderness: Present: None TMJ Tenderness: Present: None Glascow Coma Scale (see protocol): 15 Meningeal Signs Positive: No Pain on Passive Flexion-Positive Kernig's: No ROM Limited In: No Limitiations Focal Weakness: Present: None Focal Sensory Loss: Present: None Gait: Normal Nystagmus Present: No Gag Reflex Present: Yes [id number]: Normal Findings Romberg Test Positive: No Babinski Sign: Negative Right, Negative Left Heel to Toe Normal: Yes Differential Diagnoses: Migraine, Tension Headache Review of Systems - Review Of Systems Constitutional: Reports: No symptoms Eyes: Reports: Photophobia Ears, Nose, Mouth, Throat: Reports: No symptoms Respiratory: Reports: No symptoms Cardiac: Reports: No symptoms GI: Reports: Nausea : Reports: No symptoms Musculoskeletal: Reports: No symptoms Skin: Reports: No symptoms Neurological: Reports: Anxiety, Headache Endocrine: Reports: No symptoms Hematologic/Lymphatic: Reports: No symptoms All Other Systems: Reviewed and Negative Past Medical History - Past Medical History Previously Healthy: No Endocrine: Reports: DM 1 Cardiovascular: Reports: None Respiratory: Reports: None Hematological: Reports: None Gastrointestinal: Reports: GERD Genitourinary: Reports: None Neuro/Psych: Reports: Migraine, Seizure Musculoskeletal: Reports: None Cancer: Reports: None Last Menstrual Period: 03/28/18 Other Pertinent Past Medical History: - Surgical History General Surgical History: Reports: Appendectomy, Cholecystectomy, Tonsillectomy , Other (Liver biopsy. ) - Family History Family History: Reports: None - Social History Smoking Status: Never smoker Hx Substance Use: No Alcohol Screening: Occasionally - Immunizations Tetanus Shot up to Date: Yes Physical Exam - Physical Exam Appearance: Ill-appearing Ill-appearing: Moderate Pain Distress: Severe Eyes: JACKIE, EOMI, Conjunctiva clear Neck: Supple Respiratory: Airway patent, Breath sounds clear, Breath sounds equal, Respirations nonlabored Cardiovascular: RRR, Pulses normal, No rub, No murmur GI/: Soft, Nontender, No masses, Bowel sounds normal, No Organomegaly Musculoskeletal: Normal strength, ROM intact, No edema, No calf tenderness Skin: Warm Neurological: Sensation intact, Alert, Oriented Psychiatric: Anxious Critical Care Note - Critical Care Note Total Time (mins): 0 Course - Course Orders, Labs, Meds: Orders Category Date Time Status Promethazine HCl [Phenergan 25 mg/ml Vial] MEDS 04/30/18 03:38 Discontinued 25 mg IM ONCE STA Sumatriptan Succinate [Imitrex] MEDS 04/30/18 03:38 Discontinued 6 mg SUBCUT ONCE STA Medications Discontinued Medications Generic Name Dose Route Start Last Admin Trade Name Freq PRN Reason Stop Dose Admin Promethazine HCl 25 mg 04/30/18 03:38 04/30/18 03:50 Phenergan 25 Mg/Ml Vial IM 04/30/18 03:39 25 mg ONCE STA Administration Sumatriptan Succinate 6 mg 04/30/18 03:38 04/30/18 03:49 Imitrex SUBCUT 04/30/18 03:39 6 mg ONCE STA Administration Vital Signs: Temp Pulse Resp BP Pulse Ox 04/30/18 03:04 97.9 F 109 H 20 133/90 98 Departure - Departure Time of Disposition: 04:15 Disposition: HOME SELF-CARE Discharge Problem: Headache, Migraine aura without headache Instructions: Migraine Headache (ED) Condition: Fair Pt referred to PMD for follow-up: Yes IPMP verified?: No Additional Instructions: Keep you appointment with your neurologist. Take Fioricet as needed for headaches Allergies/Adverse Reactions: Allergies acetaminophen [From Tylenol] Adverse Reaction (Verified 04/30/18 03:16) Vomiting adhesive Adverse Reaction (Verified 11/22/17 02:06) Rash aspirin Adverse Reaction (Verified 04/30/18 03:16) Vomiting ibuprofen [From Advil] Adverse Reaction (Verified 04/30/18 03:16) Vomiting morphine Adverse Reaction (Verified 04/30/18 03:16) "FEELS LIKE WHOLE BODY IS ON FIRE" ITCHING naproxen [From Aleve] Adverse Reaction (Verified 04/30/18 03:16) Vomiting Home Medications: Ambulatory Orders Insulin Glargine,Hum.rec.anlog [Lantus] 45 unit SUBCUT BEDTIME 04/08/14 Insulin Lispro [Humalog Kwikpen U-100] 1 units SQ TID PRN 11/17/15 Ibuprofen 800 mg PO Q8H PRN 03/27/18 Disposition Discussed With: Patient
== END 2018-04-30 04:15 | disposition home or self-care (01) ==
LOC: ED 03:03
DX: R51 Headache (principal); R11.0 Nausea; F41.9 Anxiety disorder, unspecified; G43.109 Migraine with aura, not intractable, without status migrainosus
CPT/HCPCS: 96372; 99282

== ENCOUNTER 2018-08-03 19:02 | Emergency (ER) ==
[2018-08-03 19:06] VITALS: BP 120/83; TEMP 97.5; BMI 24.0
--- NOTE | 2018-08-03 19:28 | ED.PDOC ---
General ED Provider: Dr. MAHNAZ SAMUEL MD Chief Complaint: Fall Stated Complaint: slipprf and fell on back this morning Time Seen by Physician: 19:13 Mode of Arrival: Walk-In Information Source: Patient Exam Limitations: No limitations Primary Care Provider: MITA JAEGER Nursing and Triage Documentation Reviewed and Agree: Yes Does patient meet sepsis criteria?: No If yes, has appropriate treatment been initiated?: Yes System Inflammatory Response Syndrome: Not Applicable Sepsis Protocol: For patient's 13 years and over: Temp is 96.8 and below OR 101 and greater Pulse >90 BPM Resp >20/minute Acutely Altered Mental Status Are patient's symptoms suggestive of a new infection, such as: -Pneumonia -Skin, Soft Tissue -Endocarditis -UTI -Bone, Joint Infection -Implantable Device -Acute Abdominal Infection -Wound Infection -Meningitis -Blood Stream Catheter Infection -Unknown Review of Systems - Review Of Systems Constitutional: Reports: Other (VELA) Eyes: Reports: No symptoms Ears, Nose, Mouth, Throat: Reports: No symptoms Respiratory: Reports: No symptoms Cardiac: Reports: No symptoms GI: Reports: No symptoms : Reports: No symptoms Musculoskeletal: Reports: No symptoms Skin: Reports: No symptoms Neurological: Reports: No symptoms Endocrine: Reports: No symptoms Hematologic/Lymphatic: Reports: No symptoms All Other Systems: Reviewed and Negative Past Medical History - Past Medical History Previously Healthy: No Endocrine: Reports: DM 1 Cardiovascular: Reports: None Respiratory: Reports: None Hematological: Reports: None Gastrointestinal: Reports: GERD Genitourinary: Reports: None Neuro/Psych: Reports: Migraine, Seizure Musculoskeletal: Reports: None Cancer: Reports: None Last Menstrual Period: july 20-july 25 Other Pertinent Past Medical History: - Surgical History General Surgical History: Reports: Appendectomy, Cholecystectomy, Tonsillectomy , Other (Liver biopsy. ) - Family History Family History: Reports: None - Social History Smoking Status: Never smoker Hx Substance Use: No Alcohol Screening: None - Immunizations Tetanus Shot up to Date: Yes Physical Exam - Physical Exam Appearance: Well-appearing, No pain distress, Well-nourished Eyes: JACKIE, EOMI, Conjunctiva clear ENT: Ears normal, Nose normal, Oropharynx normal Neck: Supple Respiratory: Airway patent, Breath sounds clear, Breath sounds equal, Respirations nonlabored Cardiovascular: RRR, Pulses normal, No rub, No murmur GI/: Soft, Nontender, No masses, Bowel sounds normal, No Organomegaly Musculoskeletal: Normal strength, ROM intact, No edema, No calf tenderness Skin: Warm, Dry, Normal color Neurological: Sensation intact, Motor intact, Reflexes intact, Cranial nerves intact, Alert, Oriented Psychiatric: Affect appropriate, Mood appropriate Critical Care Note - Critical Care Note Total Time (mins): 0 Course - Course Orders, Labs, Meds: Orders Category Date Time Status Cyclobenzaprine HCl [Flexeril] MEDS 08/03/18 19:31 Discontinued 10 mg PO ONCE STA Methylprednisolone Sod Succ/Pf [Solu-Medrol 125 mg] MEDS 08/03/18 19:32 Discontinued 125 mg IM ONCE STA Medications Discontinued Medications Generic Name Dose Route Start Last Admin Trade Name Freq PRN Reason Stop Dose Admin Cyclobenzaprine HCl 10 mg 08/03/18 19:31 08/03/18 19:36 Flexeril PO 08/03/18 19:32 10 mg ONCE STA Administration Methylprednisolone Sodium Succinate 125 mg 08/03/18 19:32 08/03/18 19:35 Solu-Medrol 125 Mg IM 08/03/18 19:33 125 mg ONCE STA Administration Vital Signs: Temp Pulse Resp BP Pulse Ox 08/03/18 19:03 97.5 F L 111 H 16 120/83 99 Departure - Departure Time of Disposition: 20:45 Disposition: HOME SELF-CARE Discharge Problem: Back pain, Headache Condition: Good Pt referred to PMD for follow-up: Yes IPMP verified?: No Allergies/Adverse Reactions: Allergies acetaminophen [From Tylenol] Adverse Reaction (Verified 04/30/18 03:16) Vomiting adhesive Adverse Reaction (Verified 11/22/17 02:06) Rash aspirin Adverse Reaction (Verified 04/30/18 03:16) Vomiting ibuprofen [From Advil] Adverse Reaction (Verified 04/30/18 03:16) Vomiting morphine Adverse Reaction (Verified 04/30/18 03:16) "FEELS LIKE WHOLE BODY IS ON FIRE" ITCHING naproxen [From Aleve] Adverse Reaction (Verified 04/30/18 03:16) Vomiting Home Medications: Ambulatory Orders Insulin Glargine,Hum.rec.anlog [Lantus] 45 unit SUBCUT BEDTIME 04/08/14 Insulin Lispro [Humalog Kwikpen U-100] 1 units SQ TID PRN 11/17/15 Clindamycin HCl [Cleocin] 150 mg PO Q6HR 08/03/18 Topiramate [Topamax] 25 mg PO DAILY 08/03/18
[2018-08-03] MEDS ORDERED: FLEXERIL PO STA (19:31)
[2018-08-03] MEDS ORDERED: SOLU-MEDROL 125 MG IM STA (19:32)
== END 2018-08-03 20:48 | disposition home or self-care (01) ==
LOC: ED 19:02
DX: M54.9 Dorsalgia, unspecified (principal); R51 Headache; W19.XXXA Unspecified fall, initial encounter
CPT/HCPCS: 96372; 99282